=== PATIENT | female | born 1960 | race African-American/Black ===

== ENCOUNTER 2023-01-10 03:26 | Emergency (ER) | payer OTHER ==
[~2023-01-10] VITALS: Ht 175.3 cm; Wt 87.0 kg
[2023-01-10] MEDS ORDERED: IPRATROPIUM/ALBUTEROL 0.5-3(2.5)MG/3ML NEB HHN ONE (05:15)
[2023-01-10] MEDS ORDERED: MAGNESIUM 2 G PREMIX 50 ML IV ONE (05:30)
[2023-01-10] MEDS ORDERED: METHYLPREDNISOLONE SOD SUCC 125 MG/2 ML VIAL IV ONE (05:30)
[2023-01-10] MEDS ORDERED: ALBU6.7H15 INH (08:06)
[2023-01-10] MEDS ORDERED: P20 PO (08:06)
[2023-01-10] MEDS ORDERED: ALBU05 NEB (08:06)
[2023-01-10 10:29] VITALS: BP 120/68
== END 2023-01-10 10:32 | disposition home or self-care (01) ==
LOC: ER 03:30
DX: J45.901 Unspecified asthma with (acute) exacerbation (principal); I50.9 Heart failure, unspecified; Z88.0 Allergy status to penicillin
CPT/HCPCS: 94640; 96365; 96375; 99284; J2930; J3475; Z7610

== ENCOUNTER 2024-05-31 18:18 | Inpatient (IN) | payer OTHER ==
[~2024-05-31] VITALS: Ht 177.8 cm; Wt 106.2 kg
[~2024-05-31 18:18] MED LIST: ALBU05 NEB; ALBU6.7H15 INH; P20 PO
[2024-05-31 18:21] VITALS: O2SAT 98
[2024-05-31] MEDS: SODIUM CHLORIDE 0.9% 1,000 ML IV ONE (19:15)
[2024-05-31 20:02] LABS: BASOPHILS % 1.3 % (0.0-2.0); EOSINOPHILS % 2.9 % (0.0-5.0); HEMATOCRIT. 40.3 % (36.0-48.0); HEMOGLOBIN. 13.2 g/dL (12.0-16.0); LYMPHOCYTES % 26.6 % (20.0-50.0); MEAN CORPUSCULAR HEMOGLOBIN 26.2 pg (28.0-32.0); MEAN CORPUSCULAR HGB CONC 32.7 g/dL (31.0-37.0); MEAN CORPUSCULAR VOLUME 80.2 fL (81.0-99.0); MEAN PLATELET VOLUME 9.6 fl (7.4-10.4); MONOCYTES % 5.8 % (2.0-8.0); NEUTROPHILS % 63.4 % (40.0-76.0); PLATELET 224 x1000/uL (130-400); RED BLOOD CELL COUNT 5.02 mill/uL (4.2-5.4); RED CELL DISTRIBUTION WIDTH 15.5 % (11.6-14.6); WHITE BLOOD COUNT 6.7 x1000/uL (4.5-11.0)
[2024-05-31 20:13] LABS: CHLORIDE 111 mEq/L (98-107); POTASSIUM 5.1 mEq/L (3.5-5.1); SODIUM 143 mEq/L (136-145)
[2024-05-31 20:14] LABS: CARBON DIOXIDE 22 mEq/L (21-32)
[2024-05-31 20:15] LABS: CALCIUM 9.7 mg/dL (8.7-10.4)
[2024-05-31 20:19] LABS: CREATININE 1.3 mg/dL (0.6-1.0); GLUCOSE 135 mg/dL (70-105); UREA NITROGEN BLOOD 22 mg/dL (9-23)
[2024-05-31 20:21] LABS: ALANINE AMINOTRANSFERASE 31 IU/L (10-49); ALBUMIN 4.5 g/dL (3.2-4.8); ASPARTATE AMINOTRANSFERASE 38 IU/L (<34)
[2024-05-31 20:22] LABS: BILIRUBIN TOTAL 0.6 mg/dL (0.1-1.0); PROTEIN TOTAL 6.9 g/dL (6.0-8.3)
[2024-05-31] MEDS: DIPHENHYDRAMINE 50MG/ML VIAL IV ONE (20:25)
[2024-05-31] MEDS: KETOROLAC 15MG/ML VIAL IV ONE (20:26)
[2024-05-31] MEDS: MAGNESIUM/ALUMINUM HYDROXIDE/SIMETHICONE 30ML UDC PO STA (20:26)
[2024-05-31] MEDS: METOCLOPRAMIDE HCL 10MG/2ML VIAL IV ONE (20:26)
[2024-05-31] MEDS: ACETAMINOPHEN 325MG TABLET PO ONE (20:27)
[2024-05-31 20:33] LABS: TROPONIN I HIGH SENSITIVITY 86 ng/L (3.0-34)
[2024-05-31 22:02] LABS: TROPONIN I HIGH SENSITIVITY 89 ng/L (3.0-34)
[2024-06-01 02:20] VITALS: BP 150/91; PULSE 87; RESP 18; TEMP 36.55848; O2SAT 92
[2024-06-01] MEDS: METOCLOPRAMIDE HCL 10MG/2ML VIAL IV SCH (03:06)
[2024-06-01] MEDS ORDERED: ACETAMINOPHEN 325MG TABLET PO PRN (10:30)
[2024-06-01] MEDS ORDERED: ENOXAPARIN 40MG/0.4ML SYR SUBCUT SCH (10:30)
[2024-06-01] MEDS ORDERED: DEXTROSE 50% WATER 50ML SYRINGE IV PRN (10:30)
[2024-06-01] MEDS ORDERED: FUROSEMIDE 40MG/4ML VIAL IVP SCH (10:30)
[2024-06-01] MEDS ORDERED: IPRATROPIUM/ALBUTEROL 0.5-3(2.5)MG/3ML NEB HHN PRN (10:30)
[2024-06-01 11:45] VITALS: BP 132/80; PULSE 83; RESP 17; O2SAT 99
[2024-06-01] MEDS ORDERED: BLOOD SUGAR DIAGNOSTIC STRIP TEST SCH (11:45)
[2024-06-01] MEDS ORDERED: IPRATROPIUM/ALBUTEROL 0.5-3(2.5)MG/3ML NEB HHN SCH (12:00)
[2024-06-01] MEDS ORDERED: INSULIN LISPRO 100 UNITS/ML SUBCUT SCH (12:15)
[2024-06-01] MEDS ORDERED: SACUBITRIL/VALSARTAN 49MG/51MG TABLET PO SCH (21:00)
[2024-06-01] MEDS ORDERED: ATORVASTATIN CALCIUM 40MG TABLET PO SCH (21:00)
[2024-06-02] MEDS ORDERED: PANTOPRAZOLE 40MG DR TABLET PO SCH (06:45)
[2024-06-02] MEDS ORDERED: METOPROLOL SUCCINATE 50MG ER TABLET PO SCH (09:00)
[2024-06-02] MEDS ORDERED: AMLODIPINE 5MG TABLET PO SCH (09:00)
[2024-06-02] MEDS ORDERED: ASPIRIN 81MG TABLET PO SCH (09:00)
[2024-06-02] MEDS ORDERED: ASPIRIN 81MG EC TABLET PO SCH (09:00)
== END 2024-06-01 14:00 | disposition left against medical advice (07) | DRG 391 ==
LOC: ER 18:18 → 5WST 23:25 → EDBEDREQ 23:54 → EDBEDREQTM 23:54
PROVIDERS: ADMIT Internal Medicine; ATTEND Internal Medicine
DX: K52.9 Noninfective gastroenteritis and colitis, unspecified (principal); I21.A1 Myocardial infarction type 2; N17.9 Acute kidney failure, unspecified; I50.9 Heart failure, unspecified; J45.909 Unspecified asthma, uncomplicated; E11.65 Type 2 diabetes mellitus with hyperglycemia; E11.22 Type 2 diabetes mellitus with diabetic chronic kidney disease; Z53.29 Procedure and treatment not carried out because of patient's decision for other reasons; N18.9 Chronic kidney disease, unspecified; I25.2 Old myocardial infarction; Z79.84 Long term (current) use of oral hypoglycemic drugs; Z88.0 Allergy status to penicillin; Z79.4 Long term (current) use of insulin
CPT/HCPCS: 36415; 71045; 80053; 83880; 84484; 85025; 93005; 99285; J1200; J1885; J2765; J7030

== ENCOUNTER 2025-07-30 12:19 | Inpatient (IN) | payer OTHER ==
[~2025-07-30] VITALS: Ht 172.7 cm; Wt 120.2 kg
[2025-07-30] MEDS: HYDROCODONE/ACETAMINOPHEN 5/325MG TABLET PO ONE (12:50)
[2025-07-30] MEDS: SODIUM CHLORIDE 0.9% 500 ML IV ONE (12:50)
[2025-07-30 12:53] LABS: BASOPHILS % 0.9 % (0.0-2.0); EOSINOPHILS % 2.7 % (0.0-5.0); HEMATOCRIT. 40.3 % (36.0-48.0); HEMOGLOBIN. 13.0 g/dL (12.0-16.0); LYMPHOCYTES % 28.1 % (20.0-50.0); MEAN PLATELET VOLUME 9.9 fl (7.4-10.4); MONOCYTES % 9.0 % (2.0-8.0); NEUTROPHILS % 59.3 % (40.0-76.0); PLATELET 242 x1000/uL (130-400); RED BLOOD CELL COUNT 5.04 mill/uL (4.2-5.4); RED CELL DISTRIBUTION WIDTH 14.3 % (11.6-14.6)
[2025-07-30 13:09] LABS: CREATININE 1.5 mg/dL (0.6-1.0)
[2025-07-30 13:10] LABS: UREA NITROGEN BLOOD 16 mg/dL (9-23)
[2025-07-30 13:11] LABS: ASPARTATE AMINOTRANSFERASE 14 IU/L (<34)
[2025-07-30 13:12] LABS: BILIRUBIN DIRECT 0.3 mg/dL (<=3.0); BILIRUBIN TOTAL 0.9 mg/dL (0.1-1.0); PROTEIN TOTAL 6.4 g/dL (6.0-8.3)
[2025-07-30 13:17] LABS: TROPONIN I HIGH SENSITIVITY 226 ng/L (3.0-34)
[2025-07-30 15:18] LABS: TROPONIN I HIGH SENSITIVITY 261 ng/L (3.0-34)
[2025-07-30] MEDS ORDERED: NITR0.4T49 SL ×2 (15:55→17:30)
[2025-07-30] MEDS ORDERED: METO-396 PO (15:55)
[2025-07-30] MEDS ORDERED: EMPA25TA PO ×2 (15:55→17:31)
[2025-07-30] MEDS ORDERED: ATOR-2 PO ×2 (15:55→17:31)
[2025-07-30] MEDS ORDERED: AMLO5TAB88 PO (15:55)
[2025-07-30] MEDS: FUROSEMIDE 40MG/4ML VIAL IVP ONE (15:59)
[2025-07-30] MEDS ORDERED: AMLODIPINE 5MG TABLET PO SCH (16:00)
[2025-07-30] MEDS ORDERED: ACETAMINOPHEN 650MG/20.3ML UDC GT PRN (16:00)
[2025-07-30] MEDS ORDERED: ENOXAPARIN 100MG/ML SYR SUBCUT ONE (16:00)
[2025-07-30] MEDS: NITROGLYCERIN OINT 1GM/INCH UDPKT TD SCH (17:00)
[2025-07-30] MEDS: MORPHINE SULFATE 2 MG/ML INJ (NOT FOR IM USE) IV NR (17:04)
[2025-07-30] MEDS: ASPIRIN 81MG TABLET PO NR (17:04)
[2025-07-30] MEDS: ENOXAPARIN 100MG/ML SYR SUBCUT NR (17:08)
[2025-07-30] MEDS: PANTOPRAZOLE SODIUM 40 MG/VIAL IV SCH (17:20)
[2025-07-30] MEDS: SODIUM CHLORIDE 0.9% 1,000 ML IV SCH (17:20)
[2025-07-30 17:39] LABS: INR 1.1
[2025-07-30] MEDS ORDERED: PANTOPRAZOLE SODIUM 40 MG/VIAL IV SCH (18:15)
[2025-07-30 18:55] VITALS: BP 106/60; PULSE 108; RESP 20; TEMP 36.6404
[2025-07-30] MEDS ORDERED: FUROSEMIDE 100MG/10ML VIAL IVP SCH (19:45)
[2025-07-30 20:00] VITALS: BP 122/63; PULSE 93; RESP 20; TEMP 36.6; O2SAT 94
[2025-07-30] MEDS: FUROSEMIDE 40MG/4ML VIAL IV SCH (20:00)
[2025-07-30] MEDS: NITROGLYCERIN 0.4MG TABLET SL SL NR (20:14)
[2025-07-30] MEDS: NITROGLYCERIN 0.4MG TABLET SL SL PRN (20:44)
[2025-07-30] MEDS: ATORVASTATIN CALCIUM 40MG TABLET PO SCH (21:00)
[2025-07-30] MEDS: KETOROLAC 30MG/ML VIAL IV NR (21:39)
[2025-07-30 22:00] VITALS: BP 125/70; PULSE 112; RESP 20; TEMP 37.3; O2SAT 96
[2025-07-30 22:49] LABS: CREATININE 1.3 mg/dL (0.6-1.0); UREA NITROGEN BLOOD 15.0 mg/dL (9-23)
[2025-07-30 23:09] LABS: TROPONIN I HIGH SENSITIVITY 8395 ng/L (3.0-34)
[2025-07-31] VITALS (40 sets, daily range): BP systolic 95–134; BP diastolic 49–84; PULSE 89–114; RESP 17–35; TEMP 36.4–37; O2SAT 96–100
[2025-07-31 02:10] LABS: CREATINE KINASE MB FRACTION 168.7 ng/mL (0.5-3.6)
[2025-07-31 03:07] LABS: TROPONIN I HIGH SENSITIVITY 15714 ng/L (3.0-34)
[2025-07-31] MEDS: MORPHINE SULFATE 2 MG/ML INJ (NOT FOR IM USE) IV NR (05:14)
[2025-07-31] MEDS: HEPARIN 60 UNITS/KG BOLUS IV NR (05:15)
[2025-07-31] MEDS ORDERED: ENOXAPARIN 100MG/ML SYR SUBCUT SCH (06:00)
[2025-07-31] MEDS ORDERED: HEPARIN 60 UNITS/KG BOLUS IV NR (06:00)
[2025-07-31] MEDS ORDERED: HEPARIN BOLUS PRN aPTT 30-44 IV (06:00)
[2025-07-31] MEDS ORDERED: HEPARIN BOLUS PRN aPTT <30 IV (06:00)
[2025-07-31 06:26] LABS: CREATININE 1.4 mg/dL (0.6-1.0); TRIGLYCERIDE 83.0 mg/dL (0-150); UREA NITROGEN BLOOD 14.0 mg/dL (9-23)
[2025-07-31 06:27] LABS: HEMATOCRIT. 39.8 % (36.0-48.0); HEMOGLOBIN. 13.1 g/dL (12.0-16.0); LDL CHOLESTEROL 81.0 mg/dL (5-100); MEAN PLATELET VOLUME 10.5 fl (7.4-10.4); PLATELET 197 x1000/uL (130-400); RED BLOOD CELL COUNT 5.02 mill/uL (4.2-5.4); RED CELL DISTRIBUTION WIDTH 14.3 % (11.6-14.6)
[2025-07-31 06:28] LABS: T4 FREE 1.15 ng/dL (0.89-1.76)
[2025-07-31] MEDS: HEPARIN 25,000 UNITS PREMIX 250 ML IV SCH (06:49)
[2025-07-31 07:02] LABS: TROPONIN I HIGH SENSITIVITY 36121 ng/L (3.0-34)
[2025-07-31] MEDS: ASPIRIN 81MG EC TABLET PO SCH (08:40)
[2025-07-31] MEDS: MORPHINE SULFATE 2 MG/ML INJ (NOT FOR IM USE) IV SCH (08:58)
[2025-07-31] MEDS ORDERED: HEPARIN 1000 UNITS/ML 10ML ONE (12:28)
[2025-07-31] MEDS ORDERED: LIDOCAINE HCL 1% 20ML VIAL ONE (12:28)
[2025-07-31] MEDS ORDERED: ASPIRIN/SOD BICARB/CITRIC ACID 324MG TAB EFF ONE (12:29)
[2025-07-31] MEDS ORDERED: IODIXANOL 320MG/ML 100 ML BOTTLE IV ONE ×2 (12:29→14:04)
[2025-07-31] MEDS ORDERED: FENTANYL CITRATE/PF 50MCG/ML 2ML VIAL ONE (13:06)
[2025-07-31] MEDS ORDERED: MIDAZOLAM HCL 2 MG/2 ML VIAL ONE (13:06)
[2025-07-31] MEDS ORDERED: CLOPIDOGREL 75MG TABLET ONE (14:45)
[2025-07-31] MEDS ORDERED: FUROSEMIDE 100MG/10ML VIAL ONE (14:45)
[2025-07-31] MEDS ORDERED: ACETAMINOPHEN 325MG TABLET PO PRN (15:00)
[2025-07-31] MEDS ORDERED: NALOXONE HCL 0.4MG/ML VIAL IV PRN (15:00)
[2025-07-31] MEDS: CLOPIDOGREL 75MG TABLET PO SCH (15:00)
[2025-07-31] MEDS ORDERED: MORPHINE SULFATE 2 MG/ML INJ (NOT FOR IM USE) IV PRN (15:00)
[2025-07-31] MEDS ORDERED: ATROPINE SULFATE 1MG/10ML SYR IV PRN (15:00)
[2025-07-31] MEDS ORDERED: ONDANSETRON HCL 4MG/2ML INJ IV PRN (15:00)
[2025-07-31] MEDS: SODIUM CHLORIDE 0.45% 1,000 ML IV SCH (16:17)
[2025-07-31] MEDS: NITROGLYCERIN OINT 1GM/INCH UDPKT TD SCH (17:25)
[2025-07-31 17:45] LABS: EOSINOPHILS % MANUAL 1.0 % (0.0-5.0); LYMPHOCYTES % MANUAL 13.0 % (20.0-60.0); MONOCYTES % MANUAL 5.0 % (2.0-8.0); NEUTROPHILS % MANUAL 81.0 % (45.0-75.0); PLATELET ESTIMATE NORMAL
[2025-07-31 19:01] LABS: TROPONIN I HIGH SENSITIVITY 117684 ng/L (3.0-34)
[2025-07-31] MEDS: ENOXAPARIN 60MG/0.6ML SYR SUBCUT SCH (21:31)
[2025-08-01] VITALS (64 sets, daily range): BP systolic 90–151; BP diastolic 63–130; PULSE 85–115; RESP 15–35; TEMP 36.6–37.3; O2SAT 94–100
[2025-08-01] MEDS: NITROGLYCERIN 0.4MG TABLET SL SL PRN (04:33)
[2025-08-01] MEDS: MORPHINE SULFATE 2 MG/ML INJ (NOT FOR IM USE) IV PRN (04:41)
[2025-08-01 06:56] LABS: CREATININE 1.2 mg/dL (0.6-1.0); UREA NITROGEN BLOOD 15 mg/dL (9-23)
[2025-08-01 06:58] LABS: PHOSPHORUS 3.2 mg/dL (2.5-4.9)
[2025-08-01] MEDS: ASPIRIN 81MG TABLET PO SCH (08:09)
[2025-08-01] MEDS: CLOPIDOGREL 75MG TABLET PO SCH (08:09)
[2025-08-01 09:00] LABS: BASOPHILS % 0.9 % (0.0-2.0); EOSINOPHILS % 1.5 % (0.0-5.0); HEMATOCRIT. 38.4 % (36.0-48.0); HEMOGLOBIN. 12.6 g/dL (12.0-16.0); LYMPHOCYTES % 12.2 % (20.0-50.0); MEAN PLATELET VOLUME 10.5 fl (7.4-10.4); MONOCYTES % 8.9 % (2.0-8.0); NEUTROPHILS % 76.5 % (40.0-76.0); PLATELET 185 x1000/uL (130-400); RED BLOOD CELL COUNT 4.83 mill/uL (4.2-5.4); RED CELL DISTRIBUTION WIDTH 14.7 % (11.6-14.6)
[2025-08-01] MEDS: IPRATROPIUM/ALBUTEROL 0.5-3(2.5)MG/3ML NEB HHN SCH (14:20)
[2025-08-02] VITALS (23 sets, daily range): BP systolic 82–124; BP diastolic 57–84; PULSE 78–106; RESP 16–33; TEMP 36.2–36.7; O2SAT 97–100
[2025-08-02] MEDS ORDERED: NITROGLYCERIN 0.4MG TABLET SL SL PRN (03:00)
[2025-08-02 12:27] LABS: BASOPHILS % 0.7 % (0.0-2.0); EOSINOPHILS % 3.7 % (0.0-5.0); HEMATOCRIT. 40.9 % (36.0-48.0); HEMOGLOBIN. 13.5 g/dL (12.0-16.0); LYMPHOCYTES % 16.2 % (20.0-50.0); MEAN PLATELET VOLUME 10.1 fl (7.4-10.4); MONOCYTES % 9.3 % (2.0-8.0); NEUTROPHILS % 70.1 % (40.0-76.0); PLATELET 214 x1000/uL (130-400); RED BLOOD CELL COUNT 5.18 mill/uL (4.2-5.4); RED CELL DISTRIBUTION WIDTH 14.0 % (11.6-14.6)
[2025-08-02 12:44] LABS: CREATININE 1.4 mg/dL (0.6-1.0); UREA NITROGEN BLOOD 17.0 mg/dL (9-23)
[2025-08-02 19:26] LABS: CLARITY URINE CLEAR (CLEAR); COLOR URINE YELLOW (YELLOW); GLUCOSE URINE NEGATIVE (NEGATIVE); KETONES URINE NEGATIVE (NEGATIVE); LEUKOCYTE ESTERASE URINE NEGATIVE (NEGATIVE); NITRITE URINE NEGATIVE (NEGATIVE); OCCULT BLOOD URINE NEGATIVE (NEGATIVE); PH URINE 5.5 (4.5-8.0); PROTEIN URINE NEGATIVE (NEGATIVE); SPECIFIC GRAVITY URINE 1.018 (1.005-1.030); UROBILINOGEN URINE 1.0 E.U./dL (0.2-1.0)
[2025-08-02 20:36] LABS: *AMPHETAMINES SCREEN URINE NEGATIVE (NEGATIVE); *BARBITURATES SCREEN URINE NEGATIVE (NEGATIVE); *BENZODIAZEPINES SCREEN URINE PRESUMPTIVE POSITIVE (NEGATIVE); *COCAINE SCREEN URINE NEGATIVE (NEGATIVE)
[2025-08-02 20:37] LABS: CANNABINOID URINE SCREEN PRESUMPTIVE POSITIVE (NEGATIVE); ECSTASY MDMA SCREEN URINE NEGATIVE (NEGATIVE); METHADONE URINE SCREEN NEGATIVE (NEGATIVE); OPIATES URINE SCREEN PRESUMPTIVE POSITIVE (NEGATIVE); PHENCYCLIDINE URINE SCREEN NEGATIVE (NEGATIVE)
== END 2025-08-02 21:55 | disposition short-term general hospital (02) | DRG 321 ==
LOC: ER 12:19 → EDBEDREQ 14:57 → EDBEDREQTM 14:57 → 7WST 15:54 → EDBEDREQTM 15:57 → EDBEDREQSVC 15:57 → EDBEDREQ 15:57 → EDBEDREQSVC 16:26 → ENRESERV 17:21 → CVICU 07-31 15:55 → 3WST 08-02 03:07
PROVIDERS: ADMIT Internal Medicine; ATTEND Internal Medicine
PROC: 0270346 Dilation of Coronary Artery, One Artery, Bifurcation, with Drug-eluting Intraluminal Device, Percutaneous Approach (ICD-10-PCS; principal; 2025-07-31)
PROC: 4A023N7 Measurement of Cardiac Sampling and Pressure, Left Heart, Percutaneous Approach (ICD-10-PCS; 2025-07-31)
PROC: B2111ZZ Fluoroscopy of Multiple Coronary Arteries using Low Osmolar Contrast (ICD-10-PCS; 2025-07-31)
DX: I21.4 Non-ST elevation (NSTEMI) myocardial infarction (principal); I50.23 Acute on chronic systolic (congestive) heart failure; I27.20 Pulmonary hypertension, unspecified; I11.0 Hypertensive heart disease with heart failure; N17.9 Acute kidney failure, unspecified; Z68.41 Body mass index [BMI] 40.0-44.9, adult; J45.909 Unspecified asthma, uncomplicated; I07.1 Rheumatic tricuspid insufficiency; E66.9 Obesity, unspecified; E78.5 Hyperlipidemia, unspecified; I25.10 Atherosclerotic heart disease of native coronary artery without angina pectoris; I25.2 Old myocardial infarction; Z79.82 Long term (current) use of aspirin; Z79.899 Other long term (current) drug therapy; Z86.711 Personal history of pulmonary embolism; Z88.0 Allergy status to penicillin
CPT/HCPCS: 36415; 71045; 80048; 80061; 80076; 80305; 81003; 82550; 82553; 83735; 83880; 84100; 84145; 84439; 84443; 84484; 85025; 85347; 92928; 93005; 93306; 93458; 93970; 94070; 94640; 96361; 96372; 96374; 96375; 99291; A4606; A4615; C1725; C1769; C1874; C1887; C1893; J1644; J1650; J1885; J1938; J2003; J2250; J2270; J2470; J3010; J7040; Q9967